=== PATIENT | female | born 1980 | race Caucasian/White ===

== ENCOUNTER 2018-09-03 09:38 | Day surgery (SDC) | payer OTHER ==
[~2018-09-03 09:38] MED LIST: PROPOFOL INJ 200 MG/20 ML VIAL IV ONE
[2018-09-03 10:49] LABS: ALANINE AMINOTRANSFERASE 20 U/L (9-52); ALKALINE PHOSPHATASE 71 U/L (38-126); AMYLASE 38 U/L (30-110); ANION GAP 8 (5-19); ASPARTATE AMINO TRANSFERASE 11 U/L (14-36); BILIRUBIN,DIRECT 0.1 mg/dL (0.0-0.4); BILIRUBIN,TOTAL 0.3 mg/dL (0.2-1.3); BLOOD UREA NITROGEN 10 mg/dL (7-20); CARBON DIOXIDE 25 mmol/L (22-30); CHLORIDE 105 mmol/L (98-107); GLUCOSE 118 mg/dL (75-110); POTASSIUM 4.7 mmol/L (3.6-5.0); SODIUM 137.9 mmol/L (137-145); TOTAL PROTEIN 6.9 g/dL (6.3-8.2)
[2018-09-03 11:08] VITALS: BP 114/73
--- NOTE | 2018-09-03 13:10 | Operative Report ---
Operative Report DATE OF SURGERY: 09/03/18 Operative Report: The risks benefits and alternatives of the procedure explained to the patient in detail and informed consent is obtained.A GIF Olympus video scope was inserted into the patient's mouth and hypopharynx, the esophagus is identified intubated and insufflated, the scope was then advanced through the esophagus stomach and duodenum, retroflexion maneuver is done, the esophagus stomach and first and second portions of the duodenum examined. PREOPERATIVE DIAGNOSIS: Esophagitis confirmation of Juan's esophagus POSTOPERATIVE DIAGNOSIS: Juan's esophagus status post radiofrequency ablation OPERATION: EGD with radiofrequency ablation SURGEON: ELLE BOYER ANESTHESIA: LMAC TISSUE REMOVED OR ALTERED: As noted above COMPLICATIONS: None. ESTIMATED BLOOD LOSS: None. INTRAOPERATIVE FINDINGS: As noted above. PROCEDURE: Patient tolerated the procedure well. No immediate postprocedure complications are noted. Patient discharged in good condition. Discharge date 09/03/2018. Discharge diet: Regular. Discharge activity: Regular. 2-3-week follow-up to discuss findings. Patient is instructed to call the office or proceed to the emergency room should there be any further problems or questions.
== END 2018-09-03 10:55 | disposition home or self-care (01) ==
LOC: END 09:38
PROVIDERS: ATTEND Internal Medicine Gastroenterology
DX: K22.70 Barrett's esophagus without dysplasia (principal); K44.9 Diaphragmatic hernia without obstruction or gangrene; Z88.1 Allergy status to other antibiotic agents; Z79.899 Other long term (current) drug therapy
CPT/HCPCS: 43270; 36415; 82150; 83690; 80053; J2704; 731

== ENCOUNTER → 2018-09-19 | Outpatient (CLI) | payer OTHER ==
--- NOTE | 2018-09-19 11:01 | RADIOLOGY REPORT (SQ) ---
EXAM DESCRIPTION: U/S ABDOMEN COMPLETE W/DOPPLER COMPLETED DATE/TIME: 09/19/2018 10:16 am REASON FOR STUDY: NAUSEA R11.0 NAUSEA COMPARISON: None. TECHNIQUE: Dynamic and static grayscale images acquired of the abdomen and recorded on PACS. Additio nal selected color Doppler and spectral images recorded. Note: Study does not meet criteria for complete doppler/duplex scan LIMITATIONS: None. FINDINGS: PANCREAS: No masses. Visualized pancreatic duct normal caliber. LIVER: No masses. Echotexture normal. LIVER VASCULATURE: Normal directional flow of the main portal vein and hepatic veins. GALLBLADDER: Shadowing gallstone measuring up to 1.9 cm. No evidence of wall thickening or perichole cystic fluid. ULTRASOUND-DETECTED ANDERSON'S SIGN: Negative. INTRAHEPATIC DUCTS AND COMMON DUCT: CBD and intrahepatic ducts normal caliber. No filling defects. INFERIOR VENA CAVA: Normal flow. AORTA: No aneurysm. RIGHT KIDNEY: Normal in size measuring 11.8 cm. Normal echogenicity. No solid or suspicious mass es. No hydronephrosis. No calcifications. LEFT KIDNEY: Normal in size measuring 11.5 cm. Normal echogenicity. No solid or suspicious abel s. No hydronephrosis. No calcifications. SPLEEN: Normal in size measuring 9.8 cm. No focal masses. PERITONEAL AND PLEURAL SPACES: No ascites or effusions. OTHER: No other significant finding. IMPRESSION: Cholelithiasis without evidence of acute cholecystitis. Otherwise, unremarkable abdominal ultrasound. TECHNICAL DOCUMENTATION: JOB ID: [id number] [employer]- All Rights Reserved Reading location - IP/workstation name: [email or web address]
== END ==
LOC: RAD 09:26
PROVIDERS: ATTEND Family Medicine
DX: K80.20 Calculus of gallbladder without cholecystitis without obstruction (principal); R11.0 Nausea
CPT/HCPCS: 76700; 93976

== ENCOUNTER → 2018-09-26 | Outpatient (CLI) | payer OTHER ==
--- NOTE | 2018-09-26 10:59 | RADIOLOGY REPORT (SQ) ---
EXAM DESCRIPTION: CHEST PA/LATERAL COMPLETED DATE/TIME: 09/26/2018 10:49 am REASON FOR STUDY: PRE-OP,COUGH COMPARISON: None. EXAM PARAMETERS: NUMBER OF VIEWS: two views TECHNIQUE: Digital Frontal and Lateral radiographic views of the chest acquired. RADIATION DOSE: NA LIMITATIONS: none FINDINGS: LUNGS AND PLEURA: No opacities, masses or pneumothorax. No pleural effusion. MEDIASTINUM AND HILAR STRUCTURES: No masses or contour abnormalities. HEART AND VASCULAR STRUCTURES: Heart normal size. No evidence for failure. BONES: No acute findings. HARDWARE: None in the chest. OTHER: No other significant finding. IMPRESSION: NO SIGNIFICANT RADIOGRAPHIC FINDING IN THE CHEST. TECHNICAL DOCUMENTATION: JOB ID: [id number] [employer]- All Rights Reserved Reading location - IP/workstation name: [email or web address]
[2018-09-26 11:10] LABS: HEMATOCRIT 38.8 % (36.0-47.0); HEMOGLOBIN 13.6 g/dL (12.0-15.5); MEAN CORPUSCULAR HEMOGLOBIN 31.9 pg (27.0-33.4); MEAN CORPUSCULAR VOLUME 91 fl (80-97); PLATELET COUNT 341 10^3/uL (150-450); RED BLOOD COUNT 4.25 10^6/uL (3.72-5.28); RED CELL DISTRIBUTION WIDTH 12.6 % (11.5-14.0); WHITE BLOOD COUNT 8.6 10^3/uL (4.0-10.5)
[2018-09-26 11:37] LABS: ALANINE AMINOTRANSFERASE 16 U/L (9-52); ALBUMIN 4.5 g/dL (3.5-5.0); ALKALINE PHOSPHATASE 70 U/L (38-126); ANION GAP 9 (5-19); ASPARTATE AMINO TRANSFERASE 13 U/L (14-36); BILIRUBIN,DIRECT 0.2 mg/dL (0.0-0.4); BILIRUBIN,TOTAL 0.4 mg/dL (0.2-1.3); BLOOD UREA NITROGEN 11 mg/dL (7-20); CALCIUM 9.1 mg/dL (8.4-10.2); CARBON DIOXIDE 25 mmol/L (22-30); CHLORIDE 106 mmol/L (98-107); GLUCOSE 106 mg/dL (75-110); POTASSIUM 4.6 mmol/L (3.6-5.0); SODIUM 139.8 mmol/L (137-145); TOTAL PROTEIN 7.2 g/dL (6.3-8.2)
--- NOTE | 2018-09-26 13:58 | EKG REPORT ---
SEVERITY:- NORMAL ECG - SINUS RHYTHM : Confirmed by: Charlie Butler MD 26-Sep-2018 13:57:32
== END ==
LOC: OD 10:14
PROVIDERS: ATTEND Surgery
DX: Z01.810 Encounter for preprocedural cardiovascular examination (principal); Z01.812 Encounter for preprocedural laboratory examination; Z01.818 Encounter for other preprocedural examination; K80.20 Calculus of gallbladder without cholecystitis without obstruction; F31.30 Bipolar disorder, current episode depressed, mild or moderate severity, unspecified; R05 Cough
CPT/HCPCS: 36415; 71046; 80053; 85027; 93005; 93010

== ENCOUNTER 2018-10-05 15:08 | Day surgery (SDC) | payer OTHER ==
[~2018-10-05 15:08] MED LIST changes: +CEFOXITIN SODIUM 2 GM in DEXTROSE 5%-WATER 100 ML IV PRN; +IBUPROFEN 800 MG in NORMAL SALINE 250 ML IV PRN; +LACTATED RINGERS 1000 ML IV PRN; +LIDOCAINE 0.5% INJ-PF (5 MG/ML) 50 ML SDV SUBCUT PRN; -PROPOFOL INJ 200 MG/20 ML VIAL IV ONE; +RINGERS SOLUTION,LACTATED 1,000 ML IV PRN
[2018-10-05] MEDS ORDERED: ROCURONIUM BROMIDE INJ 50 MG/5 ML VIAL IV ONE (15:12)
[2018-10-05] MEDS ORDERED: SUCCINYLCHOLINE CHLORIDE INJ 200 MG/10 ML VIAL ONE (15:12)
[2018-10-05] MEDS ORDERED: NEOSTIGMINE METHYLSULFATE 10 MG/10 ML VIAL ONE (15:12)
[2018-10-05] MEDS ORDERED: ONDANSETRON HCL INJ/PF 4 MG/2 ML SDV ONE (15:12)
[2018-10-05] MEDS ORDERED: GLYCOPYRROLATE 1 MG/5 ML SYRINGE ONE (15:12)
[2018-10-05] MEDS ORDERED: DEXAMETHASONE SOD PHOSPHATE INJ 4 MG/1 ML VIAL ONE (15:12)
[2018-10-05] MEDS ORDERED: FAMOTIDINE INJ/PF 20 MG/2 ML SDV IV ONE (17:08)
[2018-10-05] MEDS ORDERED: ACETAMINOPHEN 0 MG/0 ML RTUPB IV ONE (17:08)
[2018-10-05] MEDS ORDERED: METOCLOPRAMIDE HCL INJ/PF 10 MG/2 ML SDV ONE (17:09)
[2018-10-05] MEDS ORDERED: SCOPOLAMINE HYDROBROMIDE 1.5 MG PATCH.TD72 ONE (17:10)
[2018-10-05] MEDS ORDERED: FENTANYL CITRATE INJ/PF 250 MCG/5 ML AMPULE ONE (17:11)
[2018-10-05] MEDS ORDERED: MIDAZOLAM 2 MG/2 ML INJ ONE (17:11)
[2018-10-05] MEDS ORDERED: HYDROMORPHONE HCL INJ/PF 2 MG/ML AMPULE ONE (17:11)
[2018-10-05] MEDS ORDERED: PROPOFOL INJ 200 MG/20 ML VIAL IV ONE (17:12)
[2018-10-05] MEDS ORDERED: ACETAMINOPHEN 1,000 MG/100 ML RTUPB IV ONE (17:12)
[2018-10-05] MEDS ORDERED: BUPIVACAINE HCL 0.25 % INJ/PF (2.5 MG/1 ML) 30 ML VIAL ONE (17:19)
[2018-10-05] MEDS ORDERED: PROMETHAZINE HCL INJ 25 MG/1 ML VIAL IV PRN (18:11)
[2018-10-05] MEDS ORDERED: MEPERIDINE HCL/PF INJ 25 MG/1 ML DISP.SYRIN IV PRN (18:11)
[2018-10-05] MEDS ORDERED: DIPHENHYDRAMINE HCL 50 MG/ML VIAL IV PRN (18:11)
[2018-10-05] MEDS ORDERED: MORPHINE SULFATE 10 MG/ML INJ IV PRN (18:11)
[2018-10-05] MEDS ORDERED: FENTANYL CITRATE INJ/PF 100 MCG/2 ML AMPUL IV PRN ×3 (18:11)
[2018-10-05 21:36] VITALS: BP 127/73
--- NOTE | 2018-10-07 13:36 | Discharge Summary ---
Discharge Summary (SDC) - Discharge Final Diagnosis: Symptomatic cholelithiasis Date of Surgery: 10/05/18 Discharge Date: 10/05/18 Condition: Good Forms: ASU Anesthesia D/C Instruction, Discharge POC-Surgical Service Referrals: GRETTA CALVILLO FNP-C [Primary Care Provider] - CESAR PERKINS MD [ACTIVE STAFF] - (Follow up with Dr Perkins in03-06 call Monday for time.) Discharge Diet: As Tolerated Respiratory Treatments at Home: Deep Breathing/Coughing, Incentive Spirometer Discharge Activity: No Lifting Over 10 Pounds, No Lifting/Push/Pulling Home Care Assistance: Provided by Family Report the Following to Your Physician Immediately: Shortness of Breath, Nausea, Vomiting, Increase in Pain, Yellow Skin, Fever over 101 Degrees, Unusual Bleeding, Redness, Swelling, Warmth, Increased Soreness, IV Site Infection Signs
--- NOTE | 2018-10-07 13:42 | Operative Report ---
Nonrecallable Operative Report DATE OF SURGERY: 10/05/18 PREOPERATIVE DIAGNOSIS: Symptomatic cholelithiasis POSTOPERATIVE DIAGNOSIS: 1. Symptomatic cholelithiasis. 2. Chronic cholecystitis. OPERATION: Laparoscopic cholecystectomy SURGEON: CESAR JOSHUA ANESTHESIA: GA TISSUE REMOVED OR ALTERED: Gallbladder COMPLICATIONS: None apparent ESTIMATED BLOOD LOSS: Minimal PROCEDURE: Drains/implants: None. Procedure in detail: After informed consent was obtained, the patient was brought into the operating room and laid in the supine position. The area of the abdomen was prepped and draped in a normal sterile fashion. A 15 blade scalpel was used to create an incision within the bounds of a previous supraumbilical scar. Dissection was carried through the subcutaneous tissue, to the level of the fascia. The cicatrix was identified, grasped with a Josh clamp, and retracted upwards. The linea alba fascia was incised sharply, the abdomen was entered sharply. The balloon trocar was inserted, and pneumoperitoneum was achieved. A subxiphoid 5 mm port was placed under direct laparoscopic visualization. 2 more 5 mm ports were placed in the right upper quadrant in similar fashion. Atraumatic graspers were placed at the 5 mm ports. The gallbladder was retracted cephalad and laterally. Dissection was begun in the triangle of Calot. The cystic duct and cystic artery were fully visualized and skeletonized, seeing the liver through the triangle. Once the critical view of safety was obtained, the cystic duct and cystic artery were clipped and cut with laparoscopic instruments. The gallbladder was removed from the liver using Bovie electrocautery. In the wall of the gallbladder there is noted to be mild, chronic cholecystitis. Once it was removed, the gallbladder was placed into an Endo Catch bag and pulled out through the umbilicus. The abdomen was then copiously irrigated and suctioned, until the fluid was clear. The hilum was inspected, and found to be free of any leakage of blood or bile. Once this was confirmed, the 5 mm trochars were removed under direct laparoscopic visualizat ion. The supraumbilical trocar was removed, and pneumoperitoneum was relieved. The supraumbilical fascia was closed using 0 Vicryl suture in [id number] fashion. The overlying skin was closed using 4-0 Vicryl Rapide suture in subcuticular fashion. Dressings were placed, and the procedure was concluded. All sponge, instrument, and needle counts were correct x2. Condition: Stable.
== END 2018-10-05 21:20 | disposition home or self-care (01) ==
LOC: OROUT 15:08
PROVIDERS: ATTEND Surgery
DX: K80.10 Calculus of gallbladder with chronic cholecystitis without obstruction (principal); K21.9 Gastro-esophageal reflux disease without esophagitis; Z88.1 Allergy status to other antibiotic agents; Z79.899 Other long term (current) drug therapy
CPT/HCPCS: 81025; 88304 ×2; 47562; J2250; J3490 ×2; J1100; J0694; J3010; J2765; J1170; J0330; J2405; J7050; J2704; S0028; J0131; J1741; 790

== ENCOUNTER → 2019-07-11 | Outpatient (CLI) | payer OTHER ==
[2019-07-11 16:11] LABS: HEMOGLOBIN 13.1 g/dL (12.0-15.5); MEAN CORPUSCULAR HEMOGLOBIN 32.3 pg (27.0-33.4); MEAN CORPUSCULAR HGB CONC 34.6 g/dL (32.0-36.0); MEAN CORPUSCULAR VOLUME 93 fl (80-97); PLATELET COUNT 301 10^3/uL (150-450); RED BLOOD COUNT 4.07 10^6/uL (3.72-5.28); RED CELL DISTRIBUTION WIDTH 12.6 % (11.5-14.0); WHITE BLOOD COUNT 8.8 10^3/uL (4.0-10.5)
[2019-07-11 16:35] LABS: ALBUMIN 4.3 g/dL (3.5-5.0); ALKALINE PHOSPHATASE 85 U/L (38-126); ANION GAP 11 (5-19); ASPARTATE AMINO TRANSFERASE 16 U/L (14-36); BILIRUBIN,DIRECT 0.1 mg/dL (0.0-0.4); BILIRUBIN,TOTAL 0.5 mg/dL (0.2-1.3); BLOOD UREA NITROGEN 14 mg/dL (7-20); CALCIUM 9.7 mg/dL (8.4-10.2); CARBON DIOXIDE 26 mmol/L (22-30); CHLORIDE 104 mmol/L (98-107); GLUCOSE 87 mg/dL (75-110); POTASSIUM 4.6 mmol/L (3.6-5.0); TOTAL PROTEIN 7.2 g/dL (6.3-8.2)
[2019-07-15 12:05] LABS: VITAMIN B1 (THIAMINE) 104.9 nmol/L (66.5-200.0)
== END ==
LOC: OD 15:25
PROVIDERS: ATTEND Surgery
DX: K91.2 Postsurgical malabsorption, not elsewhere classified (principal); Z98.84 Bariatric surgery status
CPT/HCPCS: 36415; 80048; 80076; 82306; 82607; 82728; 82746; 83540; 83970; 84207; 84425; 85027

== ENCOUNTER → 2020-03-24 | Outpatient (CLI) | payer OTHER ==
--- NOTE | 2020-03-25 11:33 | WOMENS IMAGING REPORT ---
EXAM DESCRIPTION: BILAT SCREENING MAMMO W/CAD IMAGES COMPLETED DATE/TIME: 03/25/2020 10:36 am REASON FOR STUDY: Z12.31 ENCOUNTER FOR SCREENING MAMMOGRAM FOR MALIGNANT NEOPLASM OF BREAST Z12.31 ENCNTR SCREEN MAMMOGRAM FOR MALIGNANT NEOPLASM OF ARTIS COMPARISON: Baseline study EXAM PARAMETERS: Standard craniocaudal and mediolateral oblique views of each breast recorded using digital acquisition. Read with the assistance of CAD. .[facility] - [employer] Operator Version 9.2 LIMITATIONS: None. FINDINGS: No suspicious masses, suspicious calcifications or architectural distortion. No areas of c oncern. IMPRESSION: NEGATIVE MAMMOGRAM. BIRADS 1 BREAST DENSITY: b. There are scattered areas of fibroglandular density. BIRAD: ASSESSMENT: 1 NEGATIVE RECOMMENDATION: ROUTINE SCREENING Please continue yearly bilateral screening mammography/tomosynthesis in February 2021 COMMENT: The patient has been notified of the results by letter per [place] requirements. Additional no tification policies are in place for contacting patient with suspicious or incomplete findings. Quality ID #[id number]: The [employer] recommends an annual screening mammogram for women aged 40 years or over. This facility utilizes a reminder system to ensure that all patients receive reminder letters, and/or direct phone calls for appointments. This includes reminders for routine scr eening mammograms, diagnostic mammograms, or other Breast Imaging Interventions when appropriate. Th is patient will be placed in the appropriate reminder system. TECHNICAL DOCUMENTATION: FINDING NUMBER: (1) ASSESSMENT: (1) JOB ID: [id number] [employer]- All Rights Reserved Reading location - IP/workstation name: [email or web address]
== END ==
LOC: WI 08:20
PROVIDERS: ATTEND Nurse Practitioner Family
DX: Z12.31 Encounter for screening mammogram for malignant neoplasm of breast (principal)
CPT/HCPCS: 77067